=== PATIENT | female | born 1985 | race Caucasian/White ===

== ENCOUNTER 2023-01-30 13:37 | Inpatient (IN) | payer OTHER ==
[~2023-01-30] VITALS: Ht 175.3 cm; Wt 83.9 kg
[2023-01-30 13:38] VITALS: BP_SYST 146; PULSE 56; RESP 20; TEMP 98.3; O2SAT 98
[2023-01-30 14:09] LABS: BASOPHILS % (AUTO) 0.5 % (0.0-2.0); EOSINOPHILS # (AUTO) 0.2 K/uL (0.0-0.4); EOSINOPHILS % (AUTO) 2.6 % (0.0-4.0); HEMATOCRIT 42.1 % (36-48); HEMOGLOBIN 14.1 g/dL (12.0-16.0); LYMPHOCYTES # (AUTO) 2.6 K/uL (1.0-5.5); LYMPHOCYTES % (AUTO) 36.4 % (20.5-51.5); MEAN CORPUSCULAR HEMOGLOBIN 28 pg (27-31); MEAN CORPUSCULAR HGB CONC 34 % (32-36); MEAN CORPUSCULAR VOLUME 85 fL (79.0-98.0); MONOCYTES # (AUTO) 0.5 K/uL (0.0-1.0); MONOCYTES % (AUTO) 6.7 % (1.7-9.3); NEUTROPHILS # (AUTO) 3.9 K/uL (1.8-7.7); NEUTROPHILS % (AUTO) 53.8 % (40.0-70.0); PLATELET COUNT (AUTO) 360 K/uL (130-430); RED BLOOD CELL COUNT(AUTO) 4.97 MIL/uL (4.2-6.2); RED CELL DISTRIBUTION WIDTH 13.6 % (9.0-15.0); WHITE BLOOD COUNT (AUTO) 7.2 K/uL (4.8-10.8)
[2023-01-30 14:22] LABS: ANION GAP 7 (5-15); CALCIUM 7.8 mg/dL (8.4-11.0); CARBON DIOXIDE 29 mmol/L (23-29); CHLORIDE 102 mmol/L (98-107); CREATININE 0.65 mg/dL (0.55-1.30); GFR AFRICAN AMERICAN 131 mL/min (>90); GLUCOSE 91 mg/dL (74-106); POTASSIUM 3.9 mmol/L (3.5-5.1); SODIUM SERUM 138 mmol/L (136-145); UREA NITROGEN, BLOOD 10 mg/dL (8-21)
[2023-01-30 14:23] LABS: GFR NON AFRICAN-AMERICAN 108 mL/min (>90)
[2023-01-30 14:27] LABS: PROTHROMBIN TIME 10.3 SECS (9.5-12.5)
[2023-01-30 14:29] LABS: ALANINE AMINOTRANSFERASE 38 U/L (12-78); ASPARTATE AMINOTRANSFERASE 31 U/L (10-37); TOTAL BILIRUBIN 0.6 mg/dL (0.0-1.0); TOTAL PROTEIN, SERUM 8.8 g/dL (6.4-8.3)
[2023-01-30 15:19] LABS: BILIRUBIN,URINE NEGATIVE (NEGATIVE); BLOOD, URINE NEGATIVE (NEGATIVE); CLARITY/URINE CLEAR (CLEAR); COLOR,URINE YELLOW (YELLOW); GLUCOSE,URINE NEGATIVE (NEGATIVE); KETONES,URINE NEGATIVE (NEGATIVE); LEUKOCYTE ESTERASE ,URINE TRACE (NEGATIVE); NITRITE, URINE POSITIVE (NEGATIVE); PROTEIN URINE NEGATIVE (NEGATIVE); UROBILINOGEN,URINE 0.2 (0.2-1.0)
[2023-01-30] MEDS ORDERED: SERT50TA PO (15:28)
[2023-01-30 16:00] LABS: BACTERIA,URINE FEW /HPF (None Seen)
[2023-01-30] MEDS ORDERED: cefTRIAXone 1 GM in D5W 50 ML IV ONE (16:15)
[2023-01-30] MEDS ORDERED: ASPIRIN 81 MG TAB.CHEW PO ONE (17:15)
[2023-01-30] MEDS ORDERED: cefTRIAXone 1 GM VIAL ONE (17:49)
[2023-01-31 08:43] VITALS: BP_SYST 116; PULSE 62; RESP 16; TEMP 98.1; O2SAT 97
[2023-01-31] MEDS ORDERED: ACETAMINOPHEN 325 MG TABLET PO PRN ×2 (10:45→11:00)
[2023-01-31] MEDS ORDERED: HYDROcodone/ACETAMIN 5-325 MG TAB (NORCO/ VICODIN) PO PRN (10:45)
[2023-01-31] MEDS ORDERED: NALOXONE HCL 0.4 MG/ML AMP (NARCAN) IVP PRN ×2 (10:45)
[2023-01-31] MEDS ORDERED: LORazepam 2 MG/ML VIAL IVP PRN (10:45)
[2023-01-31] MEDS ORDERED: HYDROcodone/ACETAMIN 10-325 MG TAB PO PRN (10:45)
[2023-01-31] MEDS ORDERED: ONDANSETRON HCL 4 MG/2 ML VIAL IVP PRN (10:45)
[2023-01-31] MEDS ORDERED: SERTRALINE HCL 50 MG TABLET PO ONE (11:00)
[2023-01-31 11:49] LABS: CHOLESTEROL 215 mg/dL (<200); HDL CHOLESTEROL 52 mg/dL (>55); TRIGLYCERIDES 90 mg/dL (30-150)
[2023-01-31 12:00] VITALS: BP_SYST 112; PULSE 60; RESP 19; TEMP 97.1; O2SAT 98
[2023-01-31 12:35] LABS: THYROID STIMULATING HORMONE 0.81 uIu/mL (0.34-4.82)
[2023-01-31] MEDS ORDERED: NORMAL SALINE 5 ML DISP.SYRIN IVF SCH (14:00)
[2023-01-31 19:02] VITALS: BP_SYST 120; PULSE 70; RESP 18; TEMP 98.1; O2SAT 98
[2023-01-31] MEDS ORDERED: ASPI-1393 PO (19:38)
[2023-01-31] MEDS ORDERED: SIMV-341 PO (19:38)
[2023-01-31 19:47] VITALS: BP_SYST 106; PULSE 67; RESP 18; TEMP 97; O2SAT 97
[2023-02-01] MEDS ORDERED: SERTRALINE HCL 50 MG TABLET PO SCH (09:00)
== END 2023-01-31 21:19 | disposition home or self-care (01) | DRG 69 ==
LOC: SED 13:37 → STU 17:18
PROVIDERS: ADMIT Preventive Medicine Preventive Medicine/Occupational Environmental Medicine; ATTEND Preventive Medicine Preventive Medicine/Occupational Environmental Medicine
DX: G45.9 Transient cerebral ischemic attack, unspecified (principal); E83.52 Hypercalcemia; E78.00 Pure hypercholesterolemia, unspecified; Z86.32 Personal history of gestational diabetes; Z88.0 Allergy status to penicillin; Z79.899 Other long term (current) drug therapy
CPT/HCPCS: 36415; 70450-TC; 70496; 70498; 70551; 71045; 76376; 80053; 80061; 81000; 82962; 83037; 83735; 83880; 84439; 84443; 84484; 85025; 85610-TC; 85730-TC; 87040; 87086; 93005; 93306; 96365; 97112-GP; 97116-GP; 99285; G0378; J0696